=== PATIENT | female | born 1980 | race Caucasian/White ===

== ENCOUNTER 2024-04-13 13:43 | Emergency (ER) | payer OTHER, SELFPAY ==
[2024-04-13 13:51] VITALS: BP 126/80
--- NOTE | 2024-04-13 14:16 | ED.GENMED ---
History of Present Illness
General
Chief Complaint: Headache
Time Seen by Provider: 04/13/24 14:15
History of Present Illness
History of Present Illness:
HPI: Patient presents with headache. She has a history of migraine and was recently treated here in the ED with migraine approximately 1 year ago. This feels like a typical migraine but has been lasting longer. She states the onset of symptoms or
when the last storms went through with change in barometric pressure. She has ongoing photophobia. She has ongoing nausea.
EXAM:
GENERAL: Well appearing in mild no distress and she appears to be photophobic
HEENT: Moist oral mucosa
ABDOMEN: Soft with no peritoneal signs, no tenderness
NEUROLOGIC: Excellent strength all extremities, no coordination deficits, normal finger-nose testing, normal gait
PSYCHIATRIC: Appropriate mental status, normal insight and judgement
EXTREMITIES: Nontender, no edema, moves all extremities equally
SKIN: No rash, no lesions
TIME OF INITIAL ENCOUNTER: 2:20 PM
NUMBER AND COMPLEXITY OF PROBLEMS ADDRESSED AT THE ENCOUNTER
� Chronic conditions affecting care: Migraines
� Acute Exacerbation and/or Progression of Chronic Illness: Acute exacerbation of migraine
� Differential Diagnosis includes: Acute exacerbation of chronic migraine, nonspecific headache, highly doubt worrisome intracranial pathology as she states this is very similar to prior episode
AMOUNT AND/OR COMPLEXITY OF DATA TO BE REVIEWED AND ANALYZED
� I performed an independent evaluation of and my interpretation is:
EKG:
CT:
X-rays:
Laboratory Studies: Not indicated
Other:
� Review of other/old records: I reviewed the medications that were given on the last visit to the hospital on 03/29/2023. Last head CT was 2014 which was unremarkable
� Clinical information was obtained by an independent historian: I spoke to at bedside
� Prescriptions/Medications Considered but not given:
� Further testing considered but not performed: Considered CT imaging however the patient states this is her typical migraine which is lasting longer
RISK OF COMPLICATIONS AND/OR MORBIDITY OR MORTALITY OF PATIENT MANAGEMENT
� Social determinants of health affecting care: Lives at home
� Discussion with other providers:
� Escalation of care including admission/observation vs risk of discharge considered: The patient appears photophobic and had nausea and vomiting. She states this is her typical migraine but lasting longer. Started with Reglan,
Toradol, and Benadryl and will reassess. On reassessment at 4:30 PM, the patient reports some improvement�will add Depacon, IV magnesium and dexamethasone as according to records from prior visit this has helped in the past. On reassessment at
5:50 PM, the patient now feels significantly improved. She does not want to wait for the Depacon which has not come down from pharmacy yet.
Past History
Past History
ED Past Medical History: Other (Migraines)
ED Past Surgical History: Appendectomy, and Orthopedic
Social History
Tobacco: Former smoker
Alcohol: None
Personal:
Living: with family
Employment: Employed
Phy Exam
Physical Exam
Physical Exam:
See HPI
Course
Orders/Labs/Results
Orders:
Orders
04/13/24 14:22
0.9% Sodium Chloride 1000 ml [Nss] 1,000 ml IV BOLUS
Diphenhydramine [Benadryl] 25 mg IV NOW STA
Ketorolac [Toradol] 15 mg IV NOW STA
Metoclopramide [Reglan] 10 mg IV NOW STA
04/13/24 16:34
Dexamethasone Sod Phosphate [Decadron] 6 mg IV NOW STA
04/13/24 16:43
Magnesium Sulfate 2 Gram/50 ml [Magnesium Sulfate] 2 gram in 50 ml IV NOW
04/13/24 17:19
Valproate Sodium [Depacon] 1,000 mg 0.9% Sodium Chloride 50 ml [Nss] 50 ml IV NOW
Vital Signs
Initial and Last Documented VS:
Initial Vital Signs
Temp Pulse Resp BP Pulse Ox
98.4 F 72 18 126/80 99
04/13/24 13:51 04/13/24 13:51 04/13/24 13:51 04/13/24 13:51 04/13/24 13:51
Last Documented Vital Signs
Temp Pulse Resp BP Pulse Ox
98.4 F 61 16 106/66 100
04/13/24 13:51 04/13/24 17:21 04/13/24 17:21 04/13/24 17:21 04/13/24 17:21
*Critical Care Note
Total Time (30-74mins, 75-104mins- exclusive of procedures): Not Applicable
ED Attending Note
-
Portions of this chart may have been created with voice recognition software.� Occasional wrong word or��sound alike� substitutions may have occurred due to the inherent limitations of voice recognition software.
Discharge Plan
Departure
Patient Disposition: Home (Routine Discharge)
Date of Disposition: 04/13/24
Time of Disposition: 17:47
Patient with high blood pressure during this ER visit?: Yes
Discharge Problem:
Migraine headache
Instructions: Migraines (DC), BLOOD PRESSURE
Prescriptions:
No Action
ibuprofen 200 MG tablet
200 mg PO PRN PRN (Reason: pain)
sumatriptan-naproxen [Treximet] 1 EACH tablet
9 tab PO PRN PRN (Reason: migraine)
ondansetron 4 MG tablet,disintegrating
4 mg PO Q8HPRN PRN (Reason: NAUSEA/VOMITING) Qty: 10 0RF
sumatriptan succinate 50 mg tablet
50 - 100 mg PO ONCE Qty: 9 0RF
ondansetron 4 mg tablet,disintegrating
4 mg PO TIDPRN PRN (Reason: nausea/vomiting) Qty: 20 0RF
Referrals:
Juvenal Byrd MD [Active] -
Kevin Cage MD [Family Provider] -
Activity Restrictions/Additional Instructions:
I have given you the contact information for a local neurologist, Dr. Juvenal Byrd. We gave you Reglan with Benadryl, Toradol, Decadron, and IV magnesium. Return here if worse.
Interventions
Interventions:
*Risk Screen - Suicide Last Done: 04/13/24 13:54
*General Assessment Last Done: 04/13/24 13:54
ED- Neurological Assessment Last Done: 04/13/24 16:22
Discharge Date and Time
Print Language: CHINESE
[2024-04-13 15:06] VITALS: BMI 23.5
[2024-04-13] MEDS: TORADOL IV (15:07)
[2024-04-13] MEDS: REGLAN IV (15:08)
[2024-04-13] MEDS: BENADRYL IV (15:08)
[2024-04-13] MEDS: NSS IV (15:09)
[2024-04-13] MEDS: NSS 1000 IV (15:45)
[2024-04-13] MEDS: TORADOL 15 MG IV (15:45)
[2024-04-13] MEDS: REGLAN 10 MG IV (15:46)
[2024-04-13] MEDS: BENADRYL 25 MG IV (15:46)
[2024-04-13] MEDS: DECADRON 6 MG IV (17:09)
[2024-04-13] MEDS: MAGNESIUM SULFATE 50 IV (17:13)
[2024-04-13 17:21] VITALS: BP 106/66
[2024-04-13 18:57] VITALS: BP 110/62
== END 2024-04-13 18:59 | disposition home or self-care (01) ==
LOC: EMR 13:43
PROVIDERS: EMERGENCY PHYSICIAN Emergency Medicine; FAMILY PHYSICIAN Family Medicine
DX: G43.909 Migraine, unspecified, not intractable, without status migrainosus (principal); R03.0 Elevated blood-pressure reading, without diagnosis of hypertension; Z87.891 Personal history of nicotine dependence; Z91.018 Allergy to other foods; Z91.048 Other nonmedicinal substance allergy status
CPT/HCPCS: 99284; 96365; 96375 ×4; 96361

== ENCOUNTER → 2024-04-15 14:08 | Outpatient (REF) | payer OTHER, SELFPAY | LOC: HWWDC 14:08 | PROVIDERS: ATTENDING PHYSICIAN Advanced Practice Midwife; FAMILY PHYSICIAN Family Medicine | DX: Z12.31 Encounter for screening mammogram for malignant neoplasm of breast (principal) | CPT/HCPCS: 77063; 77067 ==

== ENCOUNTER → 2024-08-11 06:20 | Day surgery (SDC) | payer OTHER, SELFPAY | LOC: GI 06:20 | PROVIDERS: ATTENDING PHYSICIAN Internal Medicine Gastroenterology | DX: Z12.11 Encounter for screening for malignant neoplasm of colon (principal); D12.8 Benign neoplasm of rectum; K64.8 Other hemorrhoids; Z83.719 Family history of colon polyps, unspecified | CPT/HCPCS: 45385; 88305 ==

== ENCOUNTER → 2024-09-12 12:05 | Outpatient (REF) | payer OTHER, SELFPAY | LOC: HWRAD 12:05 | PROVIDERS: ATTENDING PHYSICIAN Chiropractor; FAMILY PHYSICIAN Family Medicine | DX: M53.2X7 Spinal instabilities, lumbosacral region (principal); R10.2 Pelvic and perineal pain | CPT/HCPCS: 72050; 72110; 72170 ==

== ENCOUNTER → 2025-07-28 10:55 | Outpatient (REF) | payer OTHER, SELFPAY | LOC: HWWDC 10:55 | PROVIDERS: ATTENDING PHYSICIAN Advanced Practice Midwife | DX: Z12.31 Encounter for screening mammogram for malignant neoplasm of breast (principal) | CPT/HCPCS: 77063; 77067 ==